=== PATIENT | female | born 2000 | race Two or more races ===

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

== ENCOUNTER 2019-06-12 17:58 | Emergency (ER) | payer OTHER ==
[~2019-06-12] VITALS: Ht 149.9 cm; Wt 49.9 kg
[2019-06-12] MEDS ORDERED: LORAZEPAM 1 MG TABLET ONE (18:59)
[2019-06-12] MEDS ORDERED: LORAZEPAM 0.5 MG TABLET PO ONE (19:00)
--- NOTE | 2019-06-12 19:02 | NUR ---
Patient discharged to home in stable conditon. Written and verbal after care instructions given. Patient verbalizes understanding of instructions.pt used [employer] to go home
== END 2019-06-12 19:05 | disposition home or self-care (01) ==
LOC: ER 17:59
DX: F41.8 Other specified anxiety disorders (principal); F32.9 Major depressive disorder, single episode, unspecified; Z90.49 Acquired absence of other specified parts of digestive tract; Z60.2 Problems related to living alone; Z79.899 Other long term (current) drug therapy
CPT/HCPCS: A4663

== ENCOUNTER 2021-07-02 13:19 | Emergency (ER) | payer MEDICAID, OTHER ==
[~2021-07-02] VITALS: Ht 147.3 cm; Wt 45.8 kg
[2021-07-02] MEDS ORDERED: PROP40TA7 PO (13:30)
--- NOTE | 2021-07-02 13:39 | NUR ---
PT IS IN ROOM #2B. DR GOODMAN EVALUATED THE PT.
[2021-07-02 13:46] LABS: HEMATOCRIT 33.6 % (31.2-41.9); MEAN CORPUSCULAR HEMOGLOBIN 29.3 uug (24.7-32.8); MEAN CORPUSCULAR VOLUME 83.9 fL (75.5-95.3); PLATELET COUNT (AUTO) 220 K/uL (179-408)
[2021-07-02 13:53] LABS: CARBON DIOXIDE 25 mmol/L (21-32); CHLORIDE 105 mmol/L (98-107); CREATININE 0.6 mg/dL (0.6-1.3); GLUCOSE 104 mg/dL (74-106); POTASSIUM 4.5 mmol/L (3.5-5.1); UREA NITROGEN, BLOOD 8 mg/dL (7-18)
[2021-07-02 14:09] LABS: ALANINE AMINOTRANSFERASE 13 U/L (14-59); ALKALINE PHOSPHATASE 67 U/L (50-136); ASPARTATE AMINOTRANSFERASE 16 U/L (15-37); BILIRUBIN,TOTAL 0.4 mg/dL (0.2-1.0); TOTAL PROTEIN, SERUM 7.2 g/dL (6.4-8.2)
[2021-07-02 14:43] VITALS: BP 126/72
--- NOTE | 2021-07-02 14:43 | NUR ---
PT WAS D/C'd TO HOME. D/C INSTRUCTIONS GIVEN TO THE PT BY DR GOODMAN.
== END 2021-07-02 14:44 | disposition home or self-care (01) ==
LOC: ER 13:19
DX: R00.1 Bradycardia, unspecified (principal); R42 Dizziness and giddiness; F31.9 Bipolar disorder, unspecified; Z79.899 Other long term (current) drug therapy
CPT/HCPCS: 36415; 71045; 84443; 84484; 85025; 93005; A4663

== ENCOUNTER 2021-07-04 20:15 | Emergency (ER) | payer MEDICAID ==
[~2021-07-04] VITALS: Ht 149.9 cm; Wt 46.3 kg
[~2021-07-04 20:15] MED LIST changes: +PROP40TA7 PO
--- NOTE | 2021-07-04 20:35 | NUR ---
PT AMBULATED TO ER C/O CHEST DISCOMFORT X 1 DAY, HX OF ATRIAL FLUTTER. A/O X4, NO SOB OR LABORED BREATHING. AFEBRILE. NO N/V/D. DENIES ANY GI/DU DISTRESS. ALL PULSES PALPABLE. CLEAR SPEECH, COMPLETE SENTENCES. FAMILY AT BEDSIDE.
--- NOTE | 2021-07-04 21:03 | NUR ---
DR. XUAN Rosenthal AT BEDSIDE, MSE IN PROGRESS.
--- NOTE | 2021-07-04 21:27 | NUR ---
Patient discharged to home in stable condition. Written and verbal after care instructions given. Patient verbalizes understanding of instructions. Stressed follow up or return to ER for worsening s/s. Steady gait. No SOB or labored breathing. No changes in LOC. Denies any pain/discomfort upon discharge. Accompanied by family.
[2021-07-04 21:28] VITALS: BP 112/57
== END 2021-07-04 21:28 | disposition home or self-care (01) ==
LOC: ER 20:15
DX: R07.9 Chest pain, unspecified (principal); I48.92 Unspecified atrial flutter; F41.9 Anxiety disorder, unspecified; Z79.899 Other long term (current) drug therapy
CPT/HCPCS: A4663

== ENCOUNTER 2021-10-25 11:39 | Emergency (ER) | payer MEDICAID, OTHER ==
[~2021-10-25] VITALS: Ht 149.9 cm; Wt 44.0 kg
[2021-10-25] MEDS ORDERED: MAG HYDROX/AL HYDROX/SIMETH 30 ML LIQUID UDC PO ONE (12:00)
--- NOTE | 2021-10-25 12:00 | NUR ---
Dr Spain at bedside for MSE.
[2021-10-25 12:08] LABS: HEMATOCRIT 39.7 % (31.2-41.9); MEAN CORPUSCULAR HEMOGLOBIN 28.5 uug (24.7-32.8); MEAN CORPUSCULAR VOLUME 83.9 fL (75.5-95.3); PLATELET COUNT (AUTO) 204 K/uL (179-408)
[2021-10-25 12:11] LABS: CARBON DIOXIDE 26 mmol/L (21-32); CHLORIDE 103 mmol/L (98-107); CREATININE 0.7 mg/dL (0.6-1.3); GLUCOSE 89 mg/dL (74-106); POTASSIUM 4.4 mmol/L (3.5-5.1); UREA NITROGEN, BLOOD 15 mg/dL (7-18)
[2021-10-25] MEDS ORDERED: MAG HYDROX/AL HYDROX/SIMETH 30 ML LIQUID UDC ONE (12:11)
[2021-10-25 12:22] LABS: ALANINE AMINOTRANSFERASE < 6 U/L (14-59); ALKALINE PHOSPHATASE 82 U/L (50-136); ASPARTATE AMINOTRANSFERASE 8 U/L (15-37); BILIRUBIN,TOTAL 0.8 mg/dL (0.2-1.0); TOTAL PROTEIN, SERUM 8.1 g/dL (6.4-8.2)
--- NOTE | 2021-10-25 12:35 | NUR ---
WINTER Massey on the way
--- NOTE | 2021-10-25 12:59 | NUR ---
PO trial was done as ordered. Pt able to tolerate 300cc of H20 and a few sips of soup on the lunch tray. Pt denies nausea, no vomiting observed, but pt verbalizes poor appetitie. Pt resting in bed, no signs of distress.
--- NOTE | 2021-10-25 13:05 | NUR ---
WINTER Tech at bedside. This RN chaperoned during WINTER.
[2021-10-25] MEDS ORDERED: FAMOTIDINE 20 MG TABLET PO ONE (13:30)
[2021-10-25 13:37] LABS: *BLOOD, URINE NEGATIVE (NEGATIVE); *CLARITY,URINE CLEAR (CLEAR); *COLOR,URINE YELLOW (YELLOW); *KETONES,URINE 4+ (NEGATIVE); *UROBILINOGEN,URINE 0.2 E.U./dl (NORMAL); LEUKOCYTE ESTERASE ,URINE TRACE (NEGATIVE); NITRITE, URINE NEGATIVE (NEGATIVE); PH,URINE 5.5 (5.0-8.0); UGLUCOSE NEGATIVE (NEGATIVE)
[2021-10-25 13:38] LABS: *BILIRUBIN,URIN 1+ (NEGATIVE)
--- NOTE | 2021-10-25 14:00 | NUR ---
Pt with vomiting episode x 1. Pt emesis watery/liquid around 150cc.
[2021-10-25] MEDS ORDERED: LIDOCAINE VISCUS 2% 15 ML UDC MM ONE (14:15)
[2021-10-25] MEDS ORDERED: ONDANSETRON ODT 4 MG TAB.RAPDIS SL ONE (14:15)
[2021-10-25] MEDS ORDERED: FAMOTIDINE 20 MG TABLET ONE (14:16)
[2021-10-25] MEDS ORDERED: LIDOCAINE VISCUS 2% 15 ML UDC ONE (14:16)
[2021-10-25] MEDS ORDERED: ONDANSETRON ODT 4 MG TAB.RAPDIS ONE (14:17)
[2021-10-25] MEDS ORDERED: ONDA4TAB5 PO (14:33)
[2021-10-25] MEDS ORDERED: NITR100C6 PO (14:33)
--- NOTE | 2021-10-25 14:43 | NUR ---
Patient discharged to home in stable condition. Written and verbal after care instructions given. Patient verbalizes understanding of instructions. Stressed follow up or return to ER for worsening s/s. Ambulated out of ED in steady gait, and steady condition.
[2021-10-25 14:44] VITALS: BP 98/60
[2021-10-25 14:48] LABS: BACTERIA,URINE FEW /HPF (NONE SEEN); RBC,URINE 0-3 /HPF (0-3); SQUAMOUS EPITHELIAL CELL,UR FEW /HPF (NONE SEEN); WBC,URINE 0-3 /HPF (0-3)
== END 2021-10-25 14:45 | disposition home or self-care (01) ==
LOC: ER 11:39
DX: R10.12 Left upper quadrant pain (principal); N83.202 Unspecified ovarian cyst, left side; Z79.899 Other long term (current) drug therapy; F41.9 Anxiety disorder, unspecified
CPT/HCPCS: 36415; 83690; 85025; A4663; Q0162